=== PATIENT | male | born 1960 | race Two or more races ===

== ENCOUNTER 2018-03-20 16:47 | Inpatient (IN) | payer OTHER ==
[~2018-03-20] VITALS: Ht 160 cm; Wt 64.7 kg
[2018-03-20 18:20] LABS: Basophils # (auto) 0 uL; Basophils % (auto) 0.3 % (0.0-2.0); Eosinophils # (auto) 0.2 uL; Eosinophils % (auto) 3.6 % (0.0-7.0); Hematocrit 41.5 % (41.0-53.0); Hemoglobin 13.8 g/dL (13.5-17.5); Lymphocytes # (auto) 1.9 uL; Lymphocytes % (auto) 35.5 % (10.0-50.0); Mean Corpuscular Hemoglobin 32.2 pg (28.0-32.0); Mean Corpuscular Hgb Conc. 33.2 g/dL (32.0-36.0); Mean Corpuscular Volume 96.7 fL (80.0-100.0); Monocytes # (auto) 0.4 uL; Monocytes % (auto) 7.5 % (0.0-12.0); Neutrophils # (auto) 2.9 uL; Neutrophils % (auto) 53.1 % (37.0-80.0); Nucleated Red Blood Cells % 0.1 %; Platelet Count (auto) 228 10^3/uL (140-450); Red Blood Cells 4.29 10^6/uL (4.5-5.90); Red Cell Distribution Width 13.4 % (11.8-14.3); White Blood Cell 5.4 10^3/uL (4.4-10.8)
[2018-03-20] MEDS ORDERED: ONDANSETRON HCL 4 MG/2 ML VIAL IV ONE ×2 (18:30→22:00)
[2018-03-20] MEDS ORDERED: MORPHINE SULFATE 4 MG/ML SYR/VIAL IV ONE ×2 (18:30→22:00)
[2018-03-20 18:39] LABS: Alanine Aminotransferase 26 U/L (16-61); Albumin 3.7 g/dL (3.4-5.0); Alkaline Phosphatase 74 U/L (45-117); Anion Gap 10 (5-15); Aspartate Aminotransferase 16 U/L (15-37); BUN/Creatinine Ratio 17.8; Bilirubin, Total 0.3 mg/dL (0.2-1.0); Blood Urea Nitrogen 18 mg/dL (7-18); Calcium 8.5 mg/dL (8.5-10.1); Carbon Dioxide 23 mmol/L (21-32); Chloride 109 mmol/L (98-107); GFR African American 97 mL/min; GFR Non-African American 80 mL/min; Glucose 101 mg/dL (74-106); Magnesium 2.7 mg/dL (1.6-2.6); Potassium 4.2 mmol/L (3.5-5.1); Sodium 142 mmol/L (136-145); Total Protein 6.7 g/dL (6.4-8.2)
[2018-03-20 20:52] LABS: INR 0.94 (0.9-1.15); Partial Thromboplastin Time 29.6 sec (22.64-33.71); Prothrombin Time 10.2 sec (9.37-12.3)
[2018-03-20] MEDS ORDERED: MORPHINE SULFATE 4 MG/ML SYR/VIAL IV PRN (23:45)
[2018-03-20] MEDS ORDERED: NITROGLYCERIN 0.4 MG SL TAB SL PRN (23:45)
[2018-03-21] VITALS (8 sets, daily range): BP systolic 117–152; BP diastolic 61–88
[2018-03-21] MEDS ORDERED: HYDROcodone-ACET 10/325MG TAB PO ONE (02:00)
[2018-03-21] MEDS ORDERED: ASPirin 81 mg TAB PO ONE (06:00)
[2018-03-21] MEDS ORDERED: METOPROLOL TARTRATE 25 MG TAB PO ONE (06:00)
[2018-03-21] MEDS ORDERED: LISINOPRIL 5 MG TAB PO ONE (10:00)
[2018-03-21] MEDS: NITROGLYCERIN 0.4 MG SL TAB SL PRN ×6 (11:52→17:36)
[2018-03-21] MEDS: MORPHINE SULFATE 4 MG/ML SYR/VIAL IV PRN ×2 (12:13→17:45)
[2018-03-21] MEDS: SODIUM CHLOR 0.9% PF (SALINE LOCK) 10ML VIAL/SYR IV SCH ×2 (17:44→21:50)
[2018-03-21] MEDS: HYDROcodone-ACET 10/325MG TAB PO PRN (21:20)
[2018-03-21] MEDS: LATANOPROST 0.005 % OPTH(EYE) SOL 2.5ML EACHEYE SCH (21:49)
[2018-03-21] MEDS: BRIMONIDINE 0.2% OPTH Soln 5ml EACHEYE SCH (21:49)
[2018-03-21] MEDS: DORZOLAMIDE HCL 2% OPTH(EYE) SOL 10ML EACHEYE SCH (21:49)
[2018-03-21] MEDS: ATORVASTATIN 20 MG TAB PO SCH (21:50)
[2018-03-22 05:00] VITALS: BP 118/70
[2018-03-22] MEDS: DORZOLAMIDE HCL 2% OPTH(EYE) SOL 10ML EACHEYE SCH ×3 (06:05→21:53)
[2018-03-22] MEDS: SODIUM CHLOR 0.9% PF (SALINE LOCK) 10ML VIAL/SYR IV SCH ×3 (06:05→21:53)
[2018-03-22] MEDS: BRIMONIDINE 0.2% OPTH Soln 5ml EACHEYE SCH ×3 (06:05→21:50)
[2018-03-22] MEDS: ISOSORBIDE DINITRATE 10 MG TAB PO SCH ×3 (06:06→18:00)
[2018-03-22 09:00] VITALS: BP 88/54
[2018-03-22] MEDS: PANTOPRAZOLE 40 MG TAB PO SCH (09:55)
[2018-03-22] MEDS: SERTRALINE HCL 50 MG TAB PO SCH (09:55)
[2018-03-22] MEDS: HYDROcodone-ACET 10/325MG TAB PO PRN (09:58)
[2018-03-22] MEDS ORDERED: SODIUM CHLORIDE 0.9% 1,000 ML IV ONE (12:45)
[2018-03-22 13:00] VITALS: BP 94/68
[2018-03-22] MEDS: MORPHINE SULFATE 4 MG/ML SYR/VIAL IV PRN ×2 (16:30→21:45)
[2018-03-22 17:00] VITALS: BP 104/57
[2018-03-22] MEDS: ATORVASTATIN 20 MG TAB PO SCH (21:45)
[2018-03-22] MEDS: LATANOPROST 0.005 % OPTH(EYE) SOL 2.5ML EACHEYE SCH (21:50)
[2018-03-22 22:56] VITALS: BP 136/77
[2018-03-23] VITALS (7 sets, daily range): BP systolic 103–146; BP diastolic 47–67
[2018-03-23] MEDS: ISOSORBIDE DINITRATE 10 MG TAB PO SCH ×3 (06:00→18:02)
[2018-03-23] MEDS: SODIUM CHLOR 0.9% PF (SALINE LOCK) 10ML VIAL/SYR IV SCH ×3 (06:36→22:03)
[2018-03-23] MEDS: BRIMONIDINE 0.2% OPTH Soln 5ml EACHEYE SCH ×3 (06:37→22:00)
[2018-03-23] MEDS: DORZOLAMIDE HCL 2% OPTH(EYE) SOL 10ML EACHEYE SCH ×3 (06:37→22:00)
[2018-03-23] MEDS ORDERED: ADENOSINE 60 MG in GIVE UN-DILUTED 0 ML IV SCH (09:00)
[2018-03-23] MEDS: SERTRALINE HCL 50 MG TAB PO SCH (10:28)
[2018-03-23] MEDS: PANTOPRAZOLE 40 MG TAB PO SCH (10:28)
[2018-03-23] MEDS: MORPHINE SULFATE 4 MG/ML SYR/VIAL IV PRN ×2 (11:37→15:40)
[2018-03-23] MEDS ORDERED: ADENOSINE 60 MG in GIVE UN-DILUTED 0 ML IV ONE (14:15)
[2018-03-23] MEDS: ATORVASTATIN 20 MG TAB PO SCH (22:00)
[2018-03-23] MEDS: LATANOPROST 0.005 % OPTH(EYE) SOL 2.5ML EACHEYE SCH (22:02)
[2018-03-24 05:10] VITALS: BP 111/60
[2018-03-24] MEDS: ISOSORBIDE DINITRATE 10 MG TAB PO SCH ×3 (05:29→19:15)
[2018-03-24] MEDS: MORPHINE SULFATE 4 MG/ML SYR/VIAL IV PRN ×4 (05:29→21:17)
[2018-03-24] MEDS: SODIUM CHLOR 0.9% PF (SALINE LOCK) 10ML VIAL/SYR IV SCH ×3 (05:29→21:19)
[2018-03-24] MEDS: DORZOLAMIDE HCL 2% OPTH(EYE) SOL 10ML EACHEYE SCH ×3 (05:30→21:24)
[2018-03-24] MEDS: BRIMONIDINE 0.2% OPTH Soln 5ml EACHEYE SCH ×3 (05:35→21:18)
[2018-03-24 08:00] VITALS: BP 138/67
[2018-03-24 08:56] VITALS: BP 138/67
[2018-03-24] MEDS: PANTOPRAZOLE 40 MG TAB PO SCH (10:04)
[2018-03-24] MEDS: SERTRALINE HCL 50 MG TAB PO SCH (10:04)
[2018-03-24 12:43] VITALS: BP 119/61
[2018-03-24 17:00] VITALS: BP 109/58
[2018-03-24 20:53] VITALS: BP 105/80
[2018-03-24] MEDS: ATORVASTATIN 20 MG TAB PO SCH (21:17)
[2018-03-24] MEDS: LATANOPROST 0.005 % OPTH(EYE) SOL 2.5ML EACHEYE SCH (21:19)
[2018-03-25 05:01] VITALS: BP 109/62
[2018-03-25] MEDS: MORPHINE SULFATE 4 MG/ML SYR/VIAL IV PRN ×5 (05:42→20:09)
[2018-03-25] MEDS: SODIUM CHLOR 0.9% PF (SALINE LOCK) 10ML VIAL/SYR IV SCH ×3 (05:42→21:16)
[2018-03-25] MEDS: ISOSORBIDE DINITRATE 10 MG TAB PO SCH ×3 (05:42→18:04)
[2018-03-25] MEDS: DORZOLAMIDE HCL 2% OPTH(EYE) SOL 10ML EACHEYE SCH ×3 (05:43→21:14)
[2018-03-25] MEDS: BRIMONIDINE 0.2% OPTH Soln 5ml EACHEYE SCH ×3 (05:47→21:27)
[2018-03-25 07:41] VITALS: BP 109/57
[2018-03-25 07:55] VITALS: BP 109/57
[2018-03-25] MEDS: SERTRALINE HCL 50 MG TAB PO SCH (09:25)
[2018-03-25] MEDS: PANTOPRAZOLE 40 MG TAB PO SCH (09:25)
[2018-03-25 11:20] VITALS: BP 131/67
[2018-03-25 17:39] VITALS: BP 128/60
[2018-03-25] MEDS: HYDROcodone-ACET 10/325MG TAB PO PRN (18:12)
[2018-03-25] MEDS: ATORVASTATIN 20 MG TAB PO SCH (21:14)
[2018-03-25] MEDS: LATANOPROST 0.005 % OPTH(EYE) SOL 2.5ML EACHEYE SCH (21:16)
[2018-03-25 21:42] VITALS: BP 159/72
[2018-03-26] MEDS: MORPHINE SULFATE 4 MG/ML SYR/VIAL IV PRN ×3 (04:07→16:03)
[2018-03-26 04:43] VITALS: BP 142/76
[2018-03-26] MEDS: DORZOLAMIDE HCL 2% OPTH(EYE) SOL 10ML EACHEYE SCH ×3 (05:17→21:40)
[2018-03-26] MEDS: ISOSORBIDE DINITRATE 10 MG TAB PO SCH ×3 (05:19→17:46)
[2018-03-26] MEDS: BRIMONIDINE 0.2% OPTH Soln 5ml EACHEYE SCH ×3 (05:21→21:44)
[2018-03-26] MEDS: SODIUM CHLOR 0.9% PF (SALINE LOCK) 10ML VIAL/SYR IV SCH ×3 (05:22→21:43)
[2018-03-26 08:00] VITALS: BP 121/71
[2018-03-26 08:44] VITALS: BP 121/71
[2018-03-26] MEDS: SERTRALINE HCL 50 MG TAB PO SCH (09:33)
[2018-03-26] MEDS: PANTOPRAZOLE 40 MG TAB PO SCH (09:33)
[2018-03-26 11:46] VITALS: BP 134/70
[2018-03-26 16:51] VITALS: BP 135/71
[2018-03-26] MEDS ORDERED: MORPHINE SULFATE 8mg/ml INJ SDV IV PRN (17:00)
[2018-03-26] MEDS: HYDROcodone-ACET 10/325MG TAB PO PRN ×2 (19:27→23:15)
[2018-03-26] MEDS: MORPHINE SULFATE 8mg/ml INJ SDV IV PRN (20:41)
[2018-03-26 21:41] VITALS: BP 133/68
[2018-03-26] MEDS: ATORVASTATIN 20 MG TAB PO SCH (21:41)
[2018-03-26] MEDS: LATANOPROST 0.005 % OPTH(EYE) SOL 2.5ML EACHEYE SCH (21:42)
[2018-03-27] VITALS (7 sets, daily range): BP systolic 114–134; BP diastolic 68–83
[2018-03-27] MEDS: MORPHINE SULFATE 8mg/ml INJ SDV IV PRN ×4 (04:24→19:29)
[2018-03-27] MEDS: HYDROcodone-ACET 10/325MG TAB PO PRN ×2 (05:18→21:38)
[2018-03-27] MEDS: DORZOLAMIDE HCL 2% OPTH(EYE) SOL 10ML EACHEYE SCH ×3 (05:55→21:29)
[2018-03-27] MEDS: ISOSORBIDE DINITRATE 10 MG TAB PO SCH ×3 (05:57→18:10)
[2018-03-27] MEDS: SODIUM CHLOR 0.9% PF (SALINE LOCK) 10ML VIAL/SYR IV SCH ×3 (05:57→21:29)
[2018-03-27] MEDS: BRIMONIDINE 0.2% OPTH Soln 5ml EACHEYE SCH ×3 (05:57→21:32)
[2018-03-27] MEDS: PANTOPRAZOLE 40 MG TAB PO SCH (09:19)
[2018-03-27] MEDS: SERTRALINE HCL 50 MG TAB PO SCH (09:19)
[2018-03-27] MEDS: ATORVASTATIN 20 MG TAB PO SCH (21:30)
[2018-03-27] MEDS: LATANOPROST 0.005 % OPTH(EYE) SOL 2.5ML EACHEYE SCH (21:31)
[2018-03-28] MEDS: MORPHINE SULFATE 8mg/ml INJ SDV IV PRN ×5 (00:42→21:44)
[2018-03-28 05:00] VITALS: BP 130/63
[2018-03-28] MEDS: DORZOLAMIDE HCL 2% OPTH(EYE) SOL 10ML EACHEYE SCH ×3 (05:45→21:41)
[2018-03-28] MEDS: ISOSORBIDE DINITRATE 10 MG TAB PO SCH ×3 (05:47→17:38)
[2018-03-28] MEDS: BRIMONIDINE 0.2% OPTH Soln 5ml EACHEYE SCH ×3 (05:47→21:43)
[2018-03-28] MEDS: SODIUM CHLOR 0.9% PF (SALINE LOCK) 10ML VIAL/SYR IV SCH ×3 (05:48→21:43)
[2018-03-28 07:57] VITALS: BP 111/68
[2018-03-28 08:30] VITALS: BP 111/68
[2018-03-28] MEDS: PANTOPRAZOLE 40 MG TAB PO SCH (09:01)
[2018-03-28] MEDS: SERTRALINE HCL 50 MG TAB PO SCH (09:01)
[2018-03-28 12:14] VITALS: BP 140/70
[2018-03-28 17:23] VITALS: BP 134/70
[2018-03-28 21:41] VITALS: BP 137/74
[2018-03-28] MEDS: ATORVASTATIN 20 MG TAB PO SCH (21:41)
[2018-03-28] MEDS: LATANOPROST 0.005 % OPTH(EYE) SOL 2.5ML EACHEYE SCH (21:42)
[2018-03-29] MEDS: HYDROcodone-ACET 10/325MG TAB PO PRN ×5 (00:30→18:22)
[2018-03-29 04:51] VITALS: BP 134/74
[2018-03-29] MEDS: ISOSORBIDE DINITRATE 10 MG TAB PO SCH ×3 (05:48→18:21)
[2018-03-29] MEDS: SODIUM CHLOR 0.9% PF (SALINE LOCK) 10ML VIAL/SYR IV SCH ×3 (05:49→21:47)
[2018-03-29] MEDS: BRIMONIDINE 0.2% OPTH Soln 5ml EACHEYE SCH ×3 (05:50→21:46)
[2018-03-29] MEDS: DORZOLAMIDE HCL 2% OPTH(EYE) SOL 10ML EACHEYE SCH ×3 (05:50→21:46)
[2018-03-29] MEDS ORDERED: LIDOCAINE 2%HCL (LOCAL ANESTH.) INJ 20ML MDV ONE (08:55)
[2018-03-29] MEDS ORDERED: IOHEXOL 350 MG/ML 100ML IJ ONE ×2 (08:55→09:49)
[2018-03-29 09:00] VITALS: BP 135/74
[2018-03-29] MEDS ORDERED: fentaNYL CITRATE 100 MCG/2 ML VL ONE (09:19)
[2018-03-29] MEDS ORDERED: SODIUM CHL 0.9% 0 ML ONE (09:19)
[2018-03-29] MEDS ORDERED: MIDAZOLAM HCL 1MG/1ML-2 ML VIAL ONE (09:19)
[2018-03-29] MEDS ORDERED: ANGIOMAX 250 MG VIAL IV ONE ×2 (09:19→09:50)
[2018-03-29] MEDS ORDERED: SODIUM CHL 0.9% 50 ML ONE (09:50)
[2018-03-29] MEDS: PANTOPRAZOLE 40 MG TAB PO SCH (10:00)
[2018-03-29] MEDS ORDERED: CLOPIDOGREL 300 MG TAB ONE (10:06)
[2018-03-29] MEDS ORDERED: ASPirin 325 MG TAB ONE (10:07)
[2018-03-29] MEDS ORDERED: D5W/SOD CHL 0.45% 1,000 ML IV ONE (10:45)
[2018-03-29] MEDS: MORPHINE SULFATE 8mg/ml INJ SDV IV PRN ×3 (11:55→20:31)
[2018-03-29] MEDS: SERTRALINE HCL 50 MG TAB PO SCH (11:59)
[2018-03-29 12:00] VITALS: BP 136/78
[2018-03-29 13:11] LABS: Basophils # (auto) 0 uL; Basophils % (auto) 0.3 % (0.0-2.0); Eosinophils # (auto) 0.2 uL; Eosinophils % (auto) 4.1 % (0.0-7.0); Hematocrit 40.7 % (41.0-53.0); Hemoglobin 13.8 g/dL (13.5-17.5); Lymphocytes # (auto) 1.3 uL; Lymphocytes % (auto) 23.9 % (10.0-50.0); Mean Corpuscular Hemoglobin 32.3 pg (28.0-32.0); Monocytes # (auto) 0.4 uL; Monocytes % (auto) 7.2 % (0.0-12.0); Neutrophils # (auto) 3.5 uL; Neutrophils % (auto) 64.5 % (37.0-80.0); Nucleated Red Blood Cells % 0.2 %; Platelet Count (auto) 221 10^3/uL (140-450); Red Blood Cells 4.29 10^6/uL (4.5-5.90); Red Cell Distribution Width 12.8 % (11.8-14.3); White Blood Cell 5.4 10^3/uL (4.4-10.8)
[2018-03-29 13:25] LABS: BUN/Creatinine Ratio 10.6; Calcium 8.4 mg/dL (8.5-10.1); Potassium 4.3 mmol/L (3.5-5.1)
[2018-03-29 13:29] LABS: INR 1.17 (0.9-1.15); Partial Thromboplastin Time 58.7 sec (23.78-33.04); Prothrombin Time 12.4 sec (9.27-12.13)
[2018-03-29 17:00] VITALS: BP 124/69
[2018-03-29] MEDS: LATANOPROST 0.005 % OPTH(EYE) SOL 2.5ML EACHEYE SCH (21:46)
[2018-03-29 22:00] VITALS: BP 134/73
[2018-03-29] MEDS ORDERED: ATORVASTATIN 20 MG TAB PO SCH (22:00)
[2018-03-30] MEDS: MORPHINE SULFATE 8mg/ml INJ SDV IV PRN ×3 (04:29→12:41)
[2018-03-30 04:43] VITALS: BP 147/77
[2018-03-30] MEDS: BRIMONIDINE 0.2% OPTH Soln 5ml EACHEYE SCH (06:19)
[2018-03-30] MEDS: SODIUM CHLOR 0.9% PF (SALINE LOCK) 10ML VIAL/SYR IV SCH (06:19)
[2018-03-30] MEDS: DORZOLAMIDE HCL 2% OPTH(EYE) SOL 10ML EACHEYE SCH (06:19)
[2018-03-30] MEDS: ISOSORBIDE DINITRATE 10 MG TAB PO SCH (06:20)
[2018-03-30] MEDS: HYDROcodone-ACET 10/325MG TAB PO PRN ×2 (07:40→11:25)
[2018-03-30 08:49] VITALS: BP 107/67
[2018-03-30] MEDS: SERTRALINE HCL 50 MG TAB PO SCH (09:47)
[2018-03-30] MEDS: PANTOPRAZOLE 40 MG TAB PO SCH (09:47)
[2018-03-30] MEDS ORDERED: CLOPIDOGREL BISULFATE 75 MG TAB PO SCH (10:00)
[2018-03-30] MEDS ORDERED: ASPirin-EC 81 mg tab PO SCH (10:00)
[2018-03-30 11:13] VITALS: BP 147/77
[2018-03-30 12:00] VITALS: BP 114/67
== END 2018-03-30 13:48 | DRG 247 ==
LOC: ER 16:47 → EEVIPCON 16:47 → TELE 16:48 → EAST 03-21 01:05 → TELE-E-ADS 03-22 23:24
PROVIDERS: ADMIT Internal Medicine; ATTEND Internal Medicine
PROC: 027034Z Dilation of Coronary Artery, One Artery with Drug-eluting Intraluminal Device, Percutaneous Approach (ICD-10-PCS; principal; 2018-03-29)
PROC: 4A023N7 Measurement of Cardiac Sampling and Pressure, Left Heart, Percutaneous Approach (ICD-10-PCS; 2018-03-29)
PROC: B2111ZZ Fluoroscopy of Multiple Coronary Arteries using Low Osmolar Contrast (ICD-10-PCS; 2018-03-29)
PROC: B2151ZZ Fluoroscopy of Left Heart using Low Osmolar Contrast (ICD-10-PCS; 2018-03-29)
PROC: B3101ZZ Fluoroscopy of Thoracic Aorta using Low Osmolar Contrast (ICD-10-PCS; 2018-03-29)
PROC: B2131ZZ Fluoroscopy of Multiple Coronary Artery Bypass Grafts using Low Osmolar Contrast (ICD-10-PCS; 2018-03-29)
PROC: B2181ZZ Fluoroscopy of Left Internal Mammary Bypass Graft using Low Osmolar Contrast (ICD-10-PCS; 2018-03-29)
PROC: B41F1ZZ Fluoroscopy of Right Lower Extremity Arteries using Low Osmolar Contrast (ICD-10-PCS; 2018-03-29)
PROC: B3121ZZ Fluoroscopy of Left Subclavian Artery using Low Osmolar Contrast (ICD-10-PCS; 2018-03-29)
DX: I25.110 Atherosclerotic heart disease of native coronary artery with unstable angina pectoris (principal); E78.5 Hyperlipidemia, unspecified; F32.9 Major depressive disorder, single episode, unspecified; H40.9 Unspecified glaucoma; K21.9 Gastro-esophageal reflux disease without esophagitis; I25.710 Atherosclerosis of autologous vein coronary artery bypass graft(s) with unstable angina pectoris; I10 Essential (primary) hypertension; J45.909 Unspecified asthma, uncomplicated; Z95.1 Presence of aortocoronary bypass graft; Z82.49 Family history of ischemic heart disease and other diseases of the circulatory system; Z95.5 Presence of coronary angioplasty implant and graft; Z88.0 Allergy status to penicillin
CPT/HCPCS: 36415; 71045; 76499; 80048; 80053; 83735; 83880; 84443; 84484; 85025; 85610; 85730; 92928; 92937; 93005; 93017; 93306; 93459; 93567; 94761; 96374; 96375; 96376; 99152; C1874; J0153; J2250; J2270; J2405

== ENCOUNTER 2018-04-08 20:54 | Emergency (ER) | payer OTHER ==
[~2018-04-08] VITALS: Ht 157.5 cm; Wt 68.0 kg
[2018-04-08] MEDS ORDERED: SODIUM CHLOR 0.9% PF (SALINE LOCK) 10ML VIAL/SYR IV SCH (22:00)
[2018-04-08] MEDS ORDERED: ASPirin 81 mg TAB ONE (22:22)
[2018-04-08 22:31] LABS: Basophils # (auto) 0 uL; Basophils % (auto) 0.4 % (0.0-2.0); Eosinophils # (auto) 0.4 uL; Eosinophils % (auto) 5.6 % (0.0-7.0); Hematocrit 40.6 % (41.0-53.0); Lymphocytes # (auto) 2.5 uL; Lymphocytes % (auto) 34.9 % (10.0-50.0); Mean Corpuscular Hemoglobin 32.3 pg (28.0-32.0); Mean Corpuscular Hgb Conc. 34.5 g/dL (32.0-36.0); Mean Corpuscular Volume 93.7 fL (80.0-100.0); Monocytes # (auto) 0.6 uL; Monocytes % (auto) 7.7 % (0.0-12.0); Neutrophils # (auto) 3.8 uL; Neutrophils % (auto) 51.4 % (37.0-80.0); Nucleated Red Blood Cells % 0.1 %; Platelet Count (auto) 293 10^3/uL (140-450); Red Blood Cells 4.33 10^6/uL (4.5-5.90); Red Cell Distribution Width 13.2 % (11.8-14.3); White Blood Cell 7.3 10^3/uL (4.4-10.8)
[2018-04-08 22:37] LABS: INR 0.97 (0.9-1.15); Partial Thromboplastin Time 28.9 sec (23.78-33.04); Prothrombin Time 10.4 sec (9.27-12.13)
[2018-04-08 22:47] LABS: Alanine Aminotransferase 26 U/L (16-61); Albumin 3.8 g/dL (3.4-5.0); Alkaline Phosphatase 85 U/L (45-117); Anion Gap 8 (5-15); Aspartate Aminotransferase 19 U/L (15-37); BUN/Creatinine Ratio 13.7; Bilirubin, Total 0.3 mg/dL (0.2-1.0); Blood Urea Nitrogen 18 mg/dL (7-18); Calcium 8.5 mg/dL (8.5-10.1); Carbon Dioxide 24 mmol/L (21-32); Chloride 108 mmol/L (98-107); GFR African American 72 mL/min; GFR Non-African American 60 mL/min; Glucose 103 mg/dL (74-106); Magnesium 2.5 mg/dL (1.6-2.6); Potassium 3.5 mmol/L (3.5-5.1); Sodium 140 mmol/L (136-145)
[2018-04-09] MEDS ORDERED: KETOROLAC TROMETH 30 MG/ML 1ML VIAL IV ONE (00:15)
[2018-04-09 00:22] VITALS: BP 133/83
[2018-04-10] MEDS ORDERED: ASPirin 81 mg TAB PO SCH (10:00)
== END 2018-04-09 00:23 ==
LOC: ER 20:54 → EDBD 20:54 → ER 04-09 00:23
DX: R07.9 Chest pain, unspecified (principal); R55 Syncope and collapse; J45.909 Unspecified asthma, uncomplicated; K21.9 Gastro-esophageal reflux disease without esophagitis; E78.5 Hyperlipidemia, unspecified; I10 Essential (primary) hypertension; Z88.0 Allergy status to penicillin; I25.810 Atherosclerosis of coronary artery bypass graft(s) without angina pectoris; Z95.1 Presence of aortocoronary bypass graft
CPT/HCPCS: 36415; 70450; 71045; 80053; 83735; 84484; 85025; 85610; 85730; 93005; 94761; 96374; 99285; J1885

== ENCOUNTER → 2018-04-09 | Outpatient (CLI) | payer OTHER ==
[~2018-04-09] MED LIST: IOHEXOL 350 MG/ML 100ML IJ ONE; SODIUM CHLORIDE 0.9% 500 ML IV ONE
[2018-04-09 10:40] VITALS: BP 128/73
[2018-04-09 12:08] LABS: Basophils # (auto) 0 uL; Basophils % (auto) 0.5 % (0.0-2.0); Eosinophils # (auto) 0.5 uL; Eosinophils % (auto) 7.4 % (0.0-7.0); Hematocrit 41.7 % (41.0-53.0); Hemoglobin 14.5 g/dL (13.5-17.5); Lymphocytes # (auto) 1.9 uL; Lymphocytes % (auto) 30.7 % (10.0-50.0); Mean Corpuscular Hemoglobin 32.6 pg (28.0-32.0); Mean Corpuscular Hgb Conc. 34.7 g/dL (32.0-36.0); Mean Corpuscular Volume 93.9 fL (80.0-100.0); Monocytes # (auto) 0.5 uL; Monocytes % (auto) 7.9 % (0.0-12.0); Neutrophils # (auto) 3.3 uL; Neutrophils % (auto) 53.5 % (37.0-80.0); Nucleated Red Blood Cells % 0.2 %; Platelet Count (auto) 286 10^3/uL (140-450); Red Blood Cells 4.44 10^6/uL (4.5-5.90); Red Cell Distribution Width 13.2 % (11.8-14.3); White Blood Cell 6.1 10^3/uL (4.4-10.8)
[2018-04-09 12:10] VITALS: BP 148/83
[2018-04-09 12:20] LABS: BUN/Creatinine Ratio 16.5; Calcium 8.8 mg/dL (8.5-10.1); Potassium 4.2 mmol/L (3.5-5.1)
== END | disposition home or self-care (01) ==
LOC: Rad HDHVI 10:29
PROVIDERS: ATTEND Internal Medicine Cardiovascular Disease
DX: D64.9 Anemia, unspecified (principal); I10 Essential (primary) hypertension; K21.9 Gastro-esophageal reflux disease without esophagitis; E78.5 Hyperlipidemia, unspecified; I25.110 Atherosclerotic heart disease of native coronary artery with unstable angina pectoris; J45.909 Unspecified asthma, uncomplicated; Z95.1 Presence of aortocoronary bypass graft
CPT/HCPCS: 36415; 71275; 80048; 82565; 85025; 96360; G0463; J7040; Q9967

== ENCOUNTER 2018-07-15 13:19 | Inpatient (IN) | payer OTHER ==
[~2018-07-15] VITALS: Ht 160 cm; Wt 68.5 kg
[2018-07-15] MEDS ORDERED: NITROGLYCERIN 0.4 MG SL TAB SL ONE (13:45)
[2018-07-15] MEDS ORDERED: ONDANSETRON HCL 4 MG/2 ML VIAL IV ONE ×2 (13:45→19:00)
[2018-07-15] MEDS ORDERED: MORPHINE SULFATE 4 MG/ML SYR/VIAL IV ONE ×2 (13:45→19:00)
[2018-07-15] MEDS ORDERED: ASPirin 81 mg TAB PO ONE (13:45)
[2018-07-15 15:59] LABS: Basophils # (auto) 0 uL; Basophils % (auto) 0.3 % (0.0-2.0); Eosinophils # (auto) 0.2 uL; Eosinophils % (auto) 3.4 % (0.0-7.0); Hematocrit 41.4 % (41.0-53.0); INR 0.95 (0.9-1.15); Lymphocytes # (auto) 1.8 uL; Lymphocytes % (auto) 39.2 % (10.0-50.0); Mean Corpuscular Hemoglobin 31.9 pg (28.0-32.0); Mean Corpuscular Hgb Conc. 33.8 g/dL (32.0-36.0); Mean Corpuscular Volume 94.4 fL (80.0-100.0); Monocytes # (auto) 0.4 uL; Monocytes % (auto) 8.2 % (0.0-12.0); Neutrophils # (auto) 2.2 uL; Neutrophils % (auto) 48.9 % (37.0-80.0); Nucleated Red Blood Cells % 0.1 %; Partial Thromboplastin Time 27.9 sec (23.78-33.04); Platelet Count (auto) 210 10^3/uL (140-450); Prothrombin Time 10.2 sec (9.27-12.13); Red Blood Cells 4.38 10^6/uL (4.5-5.90); Red Cell Distribution Width 13.8 % (11.8-14.3); White Blood Cell 4.5 10^3/uL (4.4-10.8)
[2018-07-15 16:06] LABS: Alanine Aminotransferase 31 U/L (16-61); Albumin 3.8 g/dL (3.4-5.0); Alkaline Phosphatase 66 U/L (45-117); Anion Gap 5 (5-15); Aspartate Aminotransferase 18 U/L (15-37); BUN/Creatinine Ratio 13.5; Bilirubin, Total 0.4 mg/dL (0.2-1.0); Blood Urea Nitrogen 13 mg/dL (7-18); Calcium 8.5 mg/dL (8.5-10.1); Carbon Dioxide 27 mmol/L (21-32); Chloride 111 mmol/L (98-107); GFR African American 103 mL/min; GFR Non-African American 85 mL/min; Glucose 91 mg/dL (74-106); Potassium 4.4 mmol/L (3.5-5.1); Sodium 143 mmol/L (136-145)
[2018-07-15 16:46] LABS: Urine WBC None Seen /hpf (0 - 3)
[2018-07-15 17:24] LABS: Urine Bacteria NONE SEEN /hpf (None Seen); Urine Blood Negative /uL (Negative); Urine Specific Gravity 1.005 (1.001-1.035)
[2018-07-15] MEDS ORDERED: NITROGLYCERIN 0.4 MG SL TAB SL PRN (21:00)
[2018-07-15] MEDS ORDERED: ALBUTEROL SULF 2.5 MG/0.5ML(0.5%) NEB SOLN NEB PRN (21:00)
[2018-07-15 21:29] VITALS: BP 127/71
[2018-07-15] MEDS: ISOSORBIDE DINITRATE 10 MG TAB PO SCH (21:58)
[2018-07-15] MEDS: PROPRANOLOL HCL 20 MG TAB PO SCH (21:58)
[2018-07-15] MEDS: LATANOPROST 0.005 % OPTH(EYE) SOL 2.5ML EACHEYE SCH (21:58)
[2018-07-15 22:00] VITALS: BP 125/76
[2018-07-16] MEDS: MORPHINE SULF INJ 2 MG/ML SYRINGE 1ML IV PRN ×2 (01:40→08:32)
[2018-07-16 02:45] VITALS: BP 125/76
[2018-07-16] MEDS ORDERED: [UNRECOGNIZED DRUG - CODE] (03:48)
[2018-07-16] MEDS ORDERED: ASPI325T4 PO (03:48)
[2018-07-16] MEDS ORDERED: ATOR40TA52 PO (03:48)
[2018-07-16] MEDS ORDERED: OME20T PO (03:48)
[2018-07-16] MEDS ORDERED: LATA0.0015 EACHEYE (03:48)
[2018-07-16] MEDS ORDERED: ACET-1156 PO (03:48)
[2018-07-16] MEDS ORDERED: LISI10TA6 PO (03:48)
[2018-07-16] MEDS ORDERED: ISOS10TA2 PO (03:48)
[2018-07-16] MEDS ORDERED: CLOP75TA28 PO (03:48)
[2018-07-16] MEDS ORDERED: RANO500T2 PO (03:48)
[2018-07-16] MEDS ORDERED: PROP60CA34 PO (03:48)
[2018-07-16] MEDS ORDERED: BRIM0.159 OP (03:48)
[2018-07-16] MEDS ORDERED: CALC-460 OR (03:48)
[2018-07-16 05:42] VITALS: BP 122/62
[2018-07-16] MEDS: ISOSORBIDE DINITRATE 10 MG TAB PO SCH ×3 (05:45→22:00)
[2018-07-16] MEDS: PROPRANOLOL HCL 20 MG TAB PO SCH ×3 (05:45→22:00)
[2018-07-16 08:12] VITALS: BP 99/60
[2018-07-16] MEDS: ASPirin 81 mg TAB PO SCH (10:06)
[2018-07-16] MEDS: CLOPIDOGREL BISULFATE 75 MG TAB PO SCH (10:06)
[2018-07-16] MEDS: LISINOPRIL 10 MG TAB PO SCH (10:07)
[2018-07-16] MEDS: ALBUTEROL SULF 2.5 MG/0.5ML(0.5%) NEB SOLN NEB PRN (11:03)
[2018-07-16 12:19] VITALS: BP 107/61
[2018-07-16] MEDS ORDERED: ONDANSETRON HCL 4 MG/2 ML VIAL IV PRN (15:00)
[2018-07-16] MEDS: HYDROcodone-ACET 10/325MG TAB PO PRN ×2 (15:04→21:18)
[2018-07-16 17:00] VITALS: BP 99/58
[2018-07-16] MEDS ORDERED: ATORVASTATIN 20 MG TAB PO SCH (18:00)
[2018-07-16 22:00] VITALS: BP 99/54
[2018-07-16] MEDS: LATANOPROST 0.005 % OPTH(EYE) SOL 2.5ML EACHEYE SCH (22:59)
[2018-07-17] MEDS: HYDROcodone-ACET 10/325MG TAB PO PRN ×4 (01:42→17:43)
[2018-07-17] MEDS ORDERED: ZOLPIDEM TARTRATE 5 MG TAB PO PRN (01:45)
[2018-07-17 05:07] VITALS: BP 111/69
[2018-07-17] MEDS: ISOSORBIDE DINITRATE 10 MG TAB PO SCH ×2 (05:52→16:38)
[2018-07-17] MEDS: PROPRANOLOL HCL 20 MG TAB PO SCH ×2 (05:52→16:38)
[2018-07-17 09:00] VITALS: BP 101/53
[2018-07-17] MEDS: ALBUTEROL SULF 2.5 MG/0.5ML(0.5%) NEB SOLN NEB PRN (09:07)
[2018-07-17] MEDS: LISINOPRIL 10 MG TAB PO SCH (10:00)
[2018-07-17] MEDS: ASPirin 81 mg TAB PO SCH (10:30)
[2018-07-17] MEDS: CLOPIDOGREL BISULFATE 75 MG TAB PO SCH (10:30)
[2018-07-17] MEDS ORDERED: MEPERIDINE HCL (50 MG/ML) 1 ML VIAL IV ONE (10:45)
[2018-07-17] MEDS: MEPERIDINE HCL (50 MG/ML) 1 ML VIAL IV PRN ×3 (11:05→17:44)
[2018-07-17 13:04] VITALS: BP 94/50
[2018-07-17 14:59] VITALS: BP 101/53
== END 2018-07-17 18:58 | DRG 303 ==
LOC: EDBD 13:19 → EEVIPCON 13:25 → ER 13:25 → EEVIPCON 13:26 → TELE 13:26 → TELE-EAST 23:29
PROVIDERS: ADMIT Internal Medicine; ATTEND Internal Medicine
DX: I25.10 Atherosclerotic heart disease of native coronary artery without angina pectoris (principal); J45.909 Unspecified asthma, uncomplicated; I10 Essential (primary) hypertension; H40.9 Unspecified glaucoma; F32.9 Major depressive disorder, single episode, unspecified; M79.602 Pain in left arm; K21.9 Gastro-esophageal reflux disease without esophagitis; Z82.49 Family history of ischemic heart disease and other diseases of the circulatory system; Z98.61 Coronary angioplasty status; Z95.1 Presence of aortocoronary bypass graft; Z88.0 Allergy status to penicillin
CPT/HCPCS: 36415; 71045; 80053; 81001; 83880; 84443; 84484; 85025; 85610; 85730; 93005; 94640; 96374; 96375; 96376; J2405

== ENCOUNTER 2018-07-27 22:50 | Inpatient (IN) | payer OTHER ==
[~2018-07-27] VITALS: Ht 157.5 cm; Wt 70.2 kg
[~2018-07-27 22:50] MED LIST changes: +ACET-1156 PO; +ASPI325T4 PO; +ATOR40TA52 PO; +BRIM0.159 OP; +CALC-460 OR; +CLOP75TA28 PO; -IOHEXOL 350 MG/ML 100ML IJ ONE; +ISOS10TA2 PO; +LATA0.0015 EACHEYE; +LISI10TA6 PO; +OME20T PO; +PROP60CA34 PO; +RANO500T2 PO; -SODIUM CHLORIDE 0.9% 500 ML IV ONE; +[UNRECOGNIZED DRUG - CODE]
[2018-07-27 23:46] LABS: Basophils # (auto) 0 uL; Basophils % (auto) 0.3 % (0.0-2.0); Eosinophils # (auto) 0.1 uL; Eosinophils % (auto) 1.8 % (0.0-7.0); Hematocrit 43.4 % (41.0-53.0); Hemoglobin 14.7 g/dL (13.5-17.5); Lymphocytes # (auto) 2.3 uL; Lymphocytes % (auto) 33.9 % (10.0-50.0); Mean Corpuscular Hemoglobin 31.3 pg (28.0-32.0); Mean Corpuscular Hgb Conc. 33.9 g/dL (32.0-36.0); Mean Corpuscular Volume 92.3 fL (80.0-100.0); Monocytes # (auto) 0.5 uL; Monocytes % (auto) 7.8 % (0.0-12.0); Neutrophils # (auto) 3.9 uL; Neutrophils % (auto) 56.2 % (37.0-80.0); Nucleated Red Blood Cells % 0.1 %; Platelet Count (auto) 291 10^3/uL (140-450); Red Cell Distribution Width 13.7 % (11.8-14.3); White Blood Cell 6.9 10^3/uL (4.4-10.8)
[2018-07-28 00:02] LABS: Anion Gap 9 (5-15); BUN/Creatinine Ratio 16.7; Blood Urea Nitrogen 21 mg/dL (7-18); Calcium 8.5 mg/dL (8.5-10.1); Carbon Dioxide 23 mmol/L (21-32); Chloride 108 mmol/L (98-107); GFR African American 75 mL/min; GFR Non-African American 62 mL/min; Glucose 102 mg/dL (74-106); Magnesium 2.4 mg/dL (1.6-2.6); Sodium 140 mmol/L (136-145)
[2018-07-28 00:07] LABS: Alanine Aminotransferase 30 U/L (16-61); Alkaline Phosphatase 76 U/L (45-117); Aspartate Aminotransferase 16 U/L (15-37); Bilirubin, Total 0.3 mg/dL (0.2-1.0); Total Protein 7.5 g/dL (6.4-8.2)
[2018-07-28 04:27] LABS: Alcohol, Urine < 3.0 mg/dL (0-5); Amphetamine Screen, Urine NEGATIVE (NEGATIVE); Barbiturate Scree,Urine NEGATIVE (NEGATIVE); Benzodiazephine Screen, Urine NEGATIVE (NEGATIVE); Cannabinoid Screen, Urine NEGATIVE (NEGATIVE); Cocaine Screen, Urine NEGATIVE (NEGATIVE); Opiate Scree,Urine NEGATIVE (NEGATIVE); Phencyclidine Screen, Urine NEGATIVE (NEGATIVE)
[2018-07-28] MEDS ORDERED: MORPHINE SULF INJ 2 MG/ML SYRINGE 1ML IV PRN (05:30)
[2018-07-28] MEDS ORDERED: NITROGLYCERIN 0.4 MG SL TAB SL PRN (05:30)
[2018-07-28 09:15] VITALS: BP 141/78
[2018-07-28 12:34] VITALS: BP 100/60
[2018-07-28] MEDS: HYDROcodone-ACET 10/325MG TAB PO PRN ×2 (14:48→20:06)
[2018-07-28 17:02] VITALS: BP 130/68
[2018-07-28 22:00] VITALS: BP 141/81
[2018-07-28] MEDS ORDERED: LORazepam 0.5 MG TAB PO ONE (22:00)
[2018-07-29 05:00] VITALS: BP 114/71
[2018-07-29 08:44] VITALS: BP 124/75
[2018-07-29] MEDS: HYDROcodone-ACET 10/325MG TAB PO PRN ×2 (09:27→14:32)
[2018-07-29] MEDS ORDERED: LISINOPRIL 5 MG TAB PO SCH (10:00)
[2018-07-29] MEDS ORDERED: ENOXAPARIN SOD 40 MG/0.4 ML SYRINGE SC SCH (10:00)
[2018-07-29] MEDS ORDERED: ASPirin-EC 81 mg tab PO SCH (10:00)
[2018-07-29] MEDS ORDERED: METOPROLOL SUCCINATE XL 50 MG TAB PO SCH (10:00)
[2018-07-29 14:29] VITALS: BP 121/64
== END 2018-07-29 17:50 | DRG 303 ==
LOC: EEVIPCON 22:51 → ER 22:51 → TELE 22:52 → TELE-E-ADS 07-28 08:58
PROVIDERS: ADMIT Internal Medicine; ATTEND Internal Medicine
DX: I25.10 Atherosclerotic heart disease of native coronary artery without angina pectoris (principal); I11.9 Hypertensive heart disease without heart failure; H40.9 Unspecified glaucoma; J45.909 Unspecified asthma, uncomplicated; F32.9 Major depressive disorder, single episode, unspecified; I70.0 Atherosclerosis of aorta; K21.9 Gastro-esophageal reflux disease without esophagitis; I65.29 Occlusion and stenosis of unspecified carotid artery; Z88.0 Allergy status to penicillin; Z79.899 Other long term (current) drug therapy; Z95.1 Presence of aortocoronary bypass graft; Z82.49 Family history of ischemic heart disease and other diseases of the circulatory system; Z79.82 Long term (current) use of aspirin; Z98.61 Coronary angioplasty status
CPT/HCPCS: 36415; 71045; 80053; 80307; 83735; 83880; 84484; 85025; 87081; 93005

== ENCOUNTER → 2018-09-19 | Emergency (ER) | payer OTHER ==
[~2018-09-19] MED LIST changes: -RANO500T2 PO
== END | disposition left against medical advice (07) ==
LOC: ER 21:59
DX: R07.9 Chest pain, unspecified (principal); Z53.21 Procedure and treatment not carried out due to patient leaving prior to being seen by health care provider

== ENCOUNTER 2018-11-27 18:04 | Emergency (ER) | payer OTHER ==
[~2018-11-27] VITALS: Ht 160 cm; Wt 63.5 kg
[2018-11-27] MEDS ORDERED: ASPirin 81 mg TAB PO ONE (19:15)
[2018-11-27 19:35] LABS: Basophils # (auto) 0 uL; Basophils % (auto) 0.3 % (0.0-2.0); Eosinophils # (auto) 0.2 uL; Hematocrit 42.2 % (41.0-53.0); Hemoglobin 14.5 g/dL (13.5-17.5); Lymphocytes # (auto) 1.8 uL; Lymphocytes % (auto) 34.5 % (10.0-50.0); Mean Corpuscular Hemoglobin 32.2 pg (28.0-32.0); Mean Corpuscular Hgb Conc. 34.4 g/dL (32.0-36.0); Mean Corpuscular Volume 93.8 fL (80.0-100.0); Monocytes # (auto) 0.4 uL; Monocytes % (auto) 7.6 % (0.0-12.0); Neutrophils # (auto) 2.9 uL; Neutrophils % (auto) 54.6 % (37.0-80.0); Nucleated Red Blood Cells % 0.2 %; Platelet Count (auto) 222 10^3/uL (140-450); Red Cell Distribution Width 13.4 % (11.8-14.3); White Blood Cell 5.3 10^3/uL (4.4-10.8)
[2018-11-27 19:55] LABS: Alanine Aminotransferase 30 U/L (16-61); Albumin 3.4 g/dL (3.4-5.0); Anion Gap 7 (5-15); Aspartate Aminotransferase 22 U/L (15-37); BUN/Creatinine Ratio 15.7; Blood Urea Nitrogen 16 mg/dL (7-18); Calcium 7.7 mg/dL (8.5-10.1); Carbon Dioxide 24 mmol/L (21-32); Chloride 110 mmol/L (98-107); GFR African American > 60 mL/min; GFR Non-African American > 60 mL/min; Glucose 100 mg/dL (74-106); Potassium 4.1 mmol/L (3.5-5.1); Sodium 141 mmol/L (136-145)
[2018-11-27 19:58] LABS: INR 0.93 (0.9-1.15); Partial Thromboplastin Time 28.5 sec (23.78-33.04)
[2018-11-27 20:00] LABS: Alkaline Phosphatase 74 U/L (45-117); Bilirubin, Total 0.3 mg/dL (0.2-1.0); Total Protein 6.8 g/dL (6.4-8.2)
[2018-11-27] MEDS ORDERED: MORPHINE SULFATE 10 MG/ML INJ 1ML SDV IV ONE (20:15)
[2018-11-27] MEDS ORDERED: ONDANSETRON HCL 4 MG/2 ML VIAL IV ONE (20:15)
[2018-11-27 21:54] VITALS: BP 154/91
== END 2018-11-27 22:11 | disposition home or self-care (01) ==
LOC: EDUNIT# 18:04 → EDBD 18:04 → EEVIPCON 18:08 → ER 18:08
DX: R07.9 Chest pain, unspecified (principal); I25.810 Atherosclerosis of coronary artery bypass graft(s) without angina pectoris; K21.9 Gastro-esophageal reflux disease without esophagitis; E78.5 Hyperlipidemia, unspecified; I10 Essential (primary) hypertension; Z95.1 Presence of aortocoronary bypass graft; Z98.61 Coronary angioplasty status; Z88.0 Allergy status to penicillin; Z79.82 Long term (current) use of aspirin; Z79.899 Other long term (current) drug therapy
CPT/HCPCS: 36415; 71045; 80053; 83735; 83880; 84443; 84484; 85025; 85610; 85730; 93005; 94761; 96374; 96375; 99284; J2270; J2405